=== PATIENT | male | born 1950 | race Caucasian/White ===

== ENCOUNTER 2017-09-27 12:35 | Observation (INO) ==
--- NOTE | 2017-09-27 12:58 | Emergency Department Note ---
Disposition Clinical Impression: Chest pain Qualifiers: Chest pain type: unspecified Qualified Code(s): R07.9 - Chest pain, unspecified Disposition: Admitted As Inpatient Condition: Good Referrals: Jose Antonio Velez DO [Primary Care Provider] - Forms: ED Satisfaction Letter Time of Disposition: 17:47 Chest Pain HPI - General Chief Complaint: ED Chest Pain Stated Complaint: "CP x 3 days" Time Seen by Provider: 09/27/17 12:44 Source: patient Mode of arrival: ambulatory Limitations: no limitations Vital Signs Reviewed: Yes Nursing Notes Reviewed: Yes - History of Present Illness HPI Narrative: Patient is a 66-year-old male with no past medical history. He presents today due to chest discomfort. Patient states that about 1 week ago, he had an episode of chest discomfort while sitting during a movie. He states that the pain was sudden in onset, it radiated to his right upper extremity, rated a 10 out of 10, described as dull ache, associated with nausea and sweating. He stated that it went away after 2 minutes. He did not seek medical attention at that time. He denies any previous cardiac illnesses such as DC, CAD. Denies any previous history of cardiac stents. He states that yesterday, he had onset of chest pain again while driving. He describes the pain as a squeezing sensation in the center of his chest that spreads to the entire chest. No radiation currently to arm or jaw. No dyspnea. No worsening with exertion. Rated 6/10 currently. Took baby aspirin 81mg. Severity scale (1-10): 6 - Related Data Allergies Allergy/AdvReac Type Severity Reaction Status Date / Time No Known Allergies Allergy Unverified 01/25/15 08:57 All systems ED: reviewed and negative except as stated. Constitutional: Denies: fever Cardiovascular: Reports: chest pain Respiratory: Reports: dyspnea. Denies: cough Gastrointestinal: Reports: nausea. Denies: abdominal pain, vomiting, diarrhea Genitourinary: Denies: urgency, dysuria, frequency Neurological: Denies: headache, weakness, numbness, paresthesias Chest Pain PMH - Past Medical History Medical history: Reports: no medical history Psychiatric history: Reports: no psych history - Social History Smoking Status: Never smoker Alcohol use: Reports: none Drug use: Reports: none Physical Exam - General Limitations: no limitations General appearance: alert - Head Head exam: atraumatic, normocephalic, normal inspection - Eye Eye exam: Present: normal appearance, PERRL, EOMI - ENT ENT exam: normal exam, normal oropharynx, mucous membranes moist - Neck Neck exam: Present: normal inspection, full ROM, trachea midline - Chest Chest inspection: Present: normal inspection, symmetric chest wall rise - Respiratory Respiratory exam: Present: normal lung sounds bilaterally. Absent: respiratory distress, wheezes - Cardiovascular Cardiovascular exam: Present: regular rate, normal rhythm, normal heart sounds - Abdominal Exam Abdominal exam: Present: soft, Non-Tender. Absent: tenderness, distention, guarding, rebound, rigidity - Extremities Exam Extremities exam: Present: normal inspection, full ROM. Absent: tenderness, pedal edema - Neurological Exam Neurological exam: Present: alert, oriented X3 - Psychiatric Psychiatric exam: Present: normal affect, normal mood - Skin Skin exam: Present: warm, dry, intact, normal color Course Course Narrative: Currently concern for ACS versus PE due to pleuritic type chest discomfort. D- dimer ordered. Troponin, EKG, chest x-ray ordered. Chest x-ray negative. EKG shows normal sinus rhythm with no acute ST changes. Troponin negative. Currently waiting on d-dimer. 17:42 d-dimer positive. CTA ordered. No evidence of any acute PE, pneumonia, pulmonary edema. Patient was having some mild chest discomfort. Offered admission for trending troponins and further chest pain rule out. No recent stress test or echocardiogram. Patient was accepted for admission by Dr. Salazar. Chest X-Ray 09/27/17 12:57 IMPRESSION: No acute cardiopulmonary disease. D/ / Alexa Veliz MD / Alexa Veliz MD Interpreting Provider: Alexa Veliz MD Chest CTA 09/27/17 14:59 IMPRESSION: 1. No acute pulmonary emboli. 2. Coronary and aortic atherosclerosis with no aortic dissection. 3. Mild COPD with bibasilar atelectasis. No acute pneumonia or pulmonary edema. D/ / 09/27/2017 16:27:48 Son Flores MD / tavo Interpreting Provider: Son Flores MD Chest X-Ray 09/27/17 12:57 IMPRESSION: No acute cardiopulmonary disease. D/ / Alexa Veliz MD / Alexa Veliz MD Interpreting Provider: Alexa Veliz MD Vital Signs Temperature 98.3 F 09/27/17 12:37 Pulse Rate 93 09/27/17 12:37 Respiratory Rate 16 09/27/17 12:37 Blood Pressure 195/113 09/27/17 12:37 O2 Sat by Pulse Oximetry 97 09/27/17 12:37 Temperature 98.3 F 09/27/17 12:37 Pulse Rate 85 09/27/17 16:08 Respiratory Rate 15 09/27/17 16:08 Blood Pressure 160/120 09/27/17 16:08 O2 Sat by Pulse Oximetry 95 09/27/17 16:08 Oxygen Delivery Oxygen Delivery Room Air Chest Pain - MDM Narrative Medical decision making narrative: Currently concern for ACS versus PE due to pleuritic type chest discomfort. D- dimer ordered. Troponin, EKG, chest x-ray ordered. Chest x-ray negative. EKG shows normal sinus rhythm with no acute ST changes. Troponin negative. Currently waiting on d-dimer. 17:42 d-dimer positive. CTA ordered. No evidence of any acute PE, pneumonia, pulmonary edema. Patient was having some mild chest discomfort. Offered admission for trending troponins and further chest pain rule out. No recent stress test or echocardiogram. Patient was accepted for admission by Dr. Salazar. - Medical Records Medical records reviewed: Yes I reviewed the patient's medical records. - Lab Data Lab results reviewed: Yes I reviewed the patient's lab results. Result diagrams: 09/27/17 12:56 09/27/17 12:56 Lab Results 09/27/17 09/27/17 09/27/17 Range/Units 12:56 12:56 12:56 WBC 7.6 (4.3-11.1) K/mcL RBC 6.03 H (4.19-5.50) M/mcL Hgb 17.2 H (12.9-16.9) g/dL Hct 50.2 H (37.5-50.1) % MCV 83.3 (83.0-100.0) fL MCH 28.5 (28.0-33.3) pg MCHC 34.3 (31.6-35.5) g/dL RDW 15.2 H (11.5-14.5) % Plt Count 405 H (140-400) K/mcL MPV 9.4 (9.4-12.4) fL Immature Gran % 0.4 (0-4) % Seg Neutrophils % 54.3 % Lymphocytes % 30.2 % Monocytes % 11.7 % Eosinophils % 2.5 % Basophils % 0.9 % Neutrophils # 4.1 (1.6-8.9) K/mcL Lymphocytes # 2.3 (0.6-4.6) K/mcL Monocytes # 0.9 (0.0-1.3) K/mcL Eosinophils # 0.2 (0.0-0.6) K/mcL Basophils # 0.1 (0.0-0.2) K/mcL D-Dimer 942 H (0-500) ng/mLFEU Sodium 136 (136-145) mEq/L Potassium 4.4 (3.5-5.1) mEq/L Chloride 102 (98-107) mEq/L Carbon Dioxide 25 (23-29) mEq/L BUN 19 (8-23) mg/dL Creatinine 1.32 H (0.70-1.30) mg/dL Est GFR ( Amer) > 60 (> 60) Est GFR (Non-Af Amer) 54 L (> 60) BUN/Creatinine Ratio 14 (6-26) Glucose 100 (70-105) mg/dL Calculated Osmolality 284 (280-300) Calcium 10.6 H (8.6-10.3) mg/dL Troponin I < 0.03 (< 0.04) ng/mL - Radiology Data Radiology results reviewed: Yes I reviewed the patient's radiology results. Chest X-Ray 09/27/17 12:57 IMPRESSION: No acute cardiopulmonary disease. D/ / Alexa Veliz MD / Alexa Veliz MD Interpreting Provider: Alexa Veliz MD Chest CTA 09/27/17 14:59 IMPRESSION: 1. No acute pulmonary emboli. 2. Coronary and aortic atherosclerosis with no aortic dissection. 3. Mild COPD with bibasilar atelectasis. No acute pneumonia or pulmonary edema. D/ / 09/27/2017 16:27:48 Son Flores MD / tavo Interpreting Provider: Son Flores MD - EKG Data EKG attestation: Yes I reviewed and interpreted this EKG. EKG results narrative: 09/27/2017 at 13:06. Normal sinus rhythm. Rate 85. WA 145. QRS 83. QTC 370. Normal axis. No acute ST elevation or depression. S.B.A.R. - S.B.A.R. Situation: Demographics, MOA Background: Presenting Complaint, Relevant PMH, Meds, & Allergies Assessment: Vital Signs, Course and respsone to treatment, Exam Concerns, Patient/Family Expectation, Pertinant Lab Results Recommendation: Barrier(s) to disposition, Recommendation based on pending studies, treatments, or consults S.B.A.R. Report Given to: Dr. Salazar
[2017-09-27 13:17] LABS: Basophils # 0.1 K/mcL (0.0-0.2); Basophils % 0.9 %; Eosinophils # 0.2 K/mcL (0.0-0.6); Eosinophils % 2.5 %; Hematocrit 50.2 % (37.5-50.1); Hemoglobin 17.2 g/dL (12.9-16.9); Immature Granulocytes % 0.4 % (0-4); Lymphocytes # 2.3 K/mcL (0.6-4.6); Lymphocytes % 30.2 %; Mean Corpuscular HGB Conc 34.3 g/dL (31.6-35.5); Mean Corpuscular Hemoglobin 28.5 pg (28.0-33.3); Mean Corpuscular Volume 83.3 fL (83.0-100.0); Mean Platelet Volume 9.4 fL (9.4-12.4); Monocytes # 0.9 K/mcL (0.0-1.3); Monocytes % 11.7 %; Neutrophils # 4.1 K/mcL (1.6-8.9); Platelet Count 405 K/mcL (140-400); Red Blood Count 6.03 M/mcL (4.19-5.50); Red Cell Distribution Width 15.2 % (11.5-14.5); Segmented Neutrophils % 54.3 %
[2017-09-27 13:36] LABS: Troponin I < 0.03 ng/mL (< 0.04)
[2017-09-27 13:46] LABS: BUN/Creatinine Ratio 14 (6-26); Blood Urea Nitrogen 19 mg/dL (8-23); Calcium 10.6 mg/dL (8.6-10.3); Carbon Dioxide 25 mEq/L (23-29); Chloride 102 mEq/L (98-107); Glucose 100 mg/dL (70-105); Osmolality,Calculated 284 (280-300); Potassium 4.4 mEq/L (3.5-5.1); Sodium 136 mEq/L (136-145); eGFR For Non-African Americans 54 (> 60)
[2017-09-27] MEDS ORDERED: Nitroglycerin 0.4 MG TAB.SUBL SL PRN ×2 (13:59→17:28)
--- NOTE | 2017-09-27 14:06 | Emergency Department Note ---
Disposition Clinical Impression: Chest pain Qualifiers: Chest pain type: unspecified Qualified Code(s): R07.9 - Chest pain, unspecified Disposition: Admitted As Inpatient Condition: Good General Adult HPI - General Chief complaint: ED Chest Pain Stated complaint: "CP x 3 days" Time Seen by Provider: 09/27/17 12:44 Source: patient Mode of arrival: ambulatory Limitations: no limitations - History of Present Illness Pain Scale: 6 - Related Data Home Medications Medication Instructions Recorded Confirmed No Known Home Drugs 09/27/17 09/27/17 Allergies Allergy/AdvReac Type Severity Reaction Status Date / Time No Known Allergies Allergy Verified 09/27/17 17:52 Constitutional: Denies: fever Cardiovascular: Reports: chest pain Respiratory: Reports: dyspnea. Denies: cough Gastrointestinal: Reports: nausea. Denies: abdominal pain, vomiting, diarrhea Genitourinary: Denies: urgency, dysuria, frequency Neurological: Denies: headache, weakness, numbness, paresthesias Past Medical History - Past Medical History Medical history: Reports: no medical history Psychiatric history: Reports: no psych history - Social History Smoking Status: Never smoker Alcohol use: Reports: none Drug use: Reports: none Physical Exam - General Limitations: no limitations General appearance: alert Course Vital Signs Temperature 98.3 F 09/27/17 12:37 Pulse Rate 93 09/27/17 12:37 Respiratory Rate 16 09/27/17 12:37 Blood Pressure 195/113 09/27/17 12:37 O2 Sat by Pulse Oximetry 97 09/27/17 12:37 Temperature 98.3 F 09/27/17 12:37 Pulse Rate 84 09/27/17 17:52 Respiratory Rate 15 09/27/17 17:52 Blood Pressure 188/123 09/27/17 17:52 O2 Sat by Pulse Oximetry 95 09/27/17 17:52 Oxygen Delivery Oxygen Delivery Room Air Medical Decision Making - Lab Data Result diagrams: 09/27/17 12:56 09/27/17 12:56 Lab Results 09/27/17 09/27/17 09/27/17 Range/Units 12:56 12:56 12:56 WBC 7.6 (4.3-11.1) K/mcL RBC 6.03 H (4.19-5.50) M/mcL Hgb 17.2 H (12.9-16.9) g/dL Hct 50.2 H (37.5-50.1) % MCV 83.3 (83.0-100.0) fL MCH 28.5 (28.0-33.3) pg MCHC 34.3 (31.6-35.5) g/dL RDW 15.2 H (11.5-14.5) % Plt Count 405 H (140-400) K/mcL MPV 9.4 (9.4-12.4) fL Immature Gran % 0.4 (0-4) % Seg Neutrophils % 54.3 % Lymphocytes % 30.2 % Monocytes % 11.7 % Eosinophils % 2.5 % Basophils % 0.9 % Neutrophils # 4.1 (1.6-8.9) K/mcL Lymphocytes # 2.3 (0.6-4.6) K/mcL Monocytes # 0.9 (0.0-1.3) K/mcL Eosinophils # 0.2 (0.0-0.6) K/mcL Basophils # 0.1 (0.0-0.2) K/mcL D-Dimer 942 H (0-500) ng/mLFEU Sodium 136 (136-145) mEq/L Potassium 4.4 (3.5-5.1) mEq/L Chloride 102 (98-107) mEq/L Carbon Dioxide 25 (23-29) mEq/L BUN 19 (8-23) mg/dL Creatinine 1.32 H (0.70-1.30) mg/dL Est GFR ( Amer) > 60 (> 60) Est GFR (Non-Af Amer) 54 L (> 60) BUN/Creatinine Ratio 14 (6-26) Glucose 100 (70-105) mg/dL Calculated Osmolality 284 (280-300) Calcium 10.6 H (8.6-10.3) mg/dL Troponin I < 0.03 (< 0.04) ng/mL Attestation Statement - Attestation Attestation: I examined this patient and my medical decision-making was reviewed with the STENO TYPIST/PA/Advanced Practice Nurse/Resident Physician. I agree with the documented findings, disposition and treatment plan as described except to the extent set forth below. I did see the patient is spoke with him and examined him he does have chest pain for the last 24 hours which is constant and improved but it is never gone away completely during this time. No exertional component. Was clammy earlier. Does have intermittent dyspnea and some pain with deep inspiration. Examination the chest does not reveal any rash or any reproducible chest wall pain with palpation. I did review his EKG which shows normal sinus rhythm with a rate of 85 and without acute ischemic change. Initial troponin is negative. 2375
[2017-09-27] MEDS ORDERED: Isovue-370 500 ML INFUS..BTL IV ONE (14:59)
[2017-09-27] MEDS ORDERED: Naloxone 0.4 MG/ML INJ IVP PRN (17:25)
--- NOTE | 2017-09-27 18:57 | Electrocardiograph Report ---
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
--- NOTE | 2017-09-27 21:18 | Internal Med History&Physical ---
Date of Encounter: 09/27/17 Time of Encounter: 18:15 Internal Medicine - H&P: HPI Chief complaint: chest discomfort History of present illness: Mr. Fish is a 66 year old male with no known past medical history presented with chest pain since yesterday. He had 1 episode of chest discomfort 2 weeks ago, which resolved spontaneously in 1 min hence did not seek for any medical advice. Yesterday, it recurred and this time it did not completely resolve but remained intermittently. Substernal, described as "tightness", radiates to jaw, no aggravating/relieving factors. Not associated with N/V, diaphoresis, SOB, orthopnea, PND, LE swelling. No fever/chills or GI/ symptoms. No joint pain, rash. In the ED, he was hypertensive but otherwise stable. LAbs unremarkable except elevated D-dimer. CT angio was subsequently done which did not show PE but did show coronary/aortic atherosclerosis and mild COPD. He was given tylenol , 1 dose of nitro, and admitted for further management. Past Med Surg Social Fam HX - Past Medical History Medical history: no medical history Psychiatric history: no psych history - Past Surgical History Additional surgical history: b/l shoulder scope. left tricep insertion w/elbow ORIF. tonsillectomy. wrist surgery- - Social History Smoking Status: Never smoker Alcohol use: none Drug use: none Internal Medicine - H&P: Meds No Known Home Drugs 09/27/17 [History] 3 Allergy/AdvReac Type Severity Reaction Status Date / Time No Known Allergies Allergy Verified 09/27/17 17:52 All Systems PM: A 10-system review of systems was performed and is negative for pertinent findings except as documented above in the HPI. - Constitutional Vitals: Temp Pulse Resp BP Pulse Ox 98.4 F 84 16 155/97 96 09/27/17 20:22 09/27/17 20:22 09/27/17 20:22 09/27/17 20:22 09/27/17 20:22 - Head Head exam: Present: atraumatic, normal inspection - Eye Eye exam: Present: sclera anicteric Pupils: Present: PERRL - Neck Neck exam general surgery: Present: supple. Absent: lymphadenopathy - Respiratory Respiratory exam: Present: CTAB. Absent: rales, wheezes - Cardiovascular Cardiovascular exam: Present: RRR, +S1, +S2 - GI/Abdominal GI/Abdominal exam: Present: soft. Absent: tenderness - Extremities Exam Extremities exam: Absent: calf tenderness, joint swelling - Neurological Exam Neurological exam: Present: alert, CN II-XII intact, no focal deficits - Skin Skin exam: Present: normal color. Absent: rash Internal Med - H&P Results - Labs CBC & Chem 7: 09/27/17 12:56 09/27/17 12:56 - Assessment and plan (1) Chest pain Current Visit: Yes Status: Acute Assessment and plan: intermittent atypical chest pain that gradually worsen throughout yesterday Claims that he has no medical history but his BP is elevated and Cr mildly impaired -> suspect undiagnosed HTN and CKD also has coronary and aortic atherosclerosis on CT took ASA at home would benefit from stress test, he is unable to run due to severe L hip OA pharmacological stress test ordered serial troponin tonight check A1c and lipids in AM Qualifiers: Chest pain type: unspecified Qualified Code(s): R07.9 - Chest pain, unspecified (2) Hypertension Current Visit: Yes Status: Acute Assessment and plan: new diagnosis, would try to avoid bb for stress test tomorrow hydralazine PRN Qualifiers: Hypertension type: unspecified Qualified Code(s): I10 - Essential (primary ) hypertension (3) CKD (chronic kidney disease) Current Visit: Yes Status: Suspected Assessment and plan: Cr 1.32 with eGFR of 54, previously was in the upper normal range too suspect CKD 2/2 uncontrolled HTN monitor and outpatient work-up Qualifiers: Chronic kidney disease stage: stage 3 (moderate) Qualified Code(s): N18.3 - Chronic kidney disease, stage 3 (moderate) (4) COPD (chronic obstructive pulmonary disease) Current Visit: Yes Status: Suspected Assessment and plan: suspected based on CT chest finding but pt has no smoking history outpatient PFT for confirmation Qualifiers: COPD type: unspecified COPD Qualified Code(s): J44.9 - Chronic obstructive pulmonary disease, unspecified (5) DVT prophylaxis Current Visit: Yes Status: Acute Assessment and plan: SQ heparin - Time Spent With Patient Total time spent is greater than 50% in coordination of care (as documented) at patient's floor/unit and/or counseling patient:
[2017-09-27] MEDS ORDERED: Aspirin 81 MG TAB.CHEW PO ONE (21:34)
[2017-09-28] MEDS ORDERED: Ondansetron 4 MG/2 ML VIAL IVP PRN (01:01)
[2017-09-28] MEDS ORDERED: *HR* Heparin 5,000 UNIT/ML VIAL SQ SCH (06:00)
[2017-09-28] MEDS ORDERED: Regadenoson 0.4 MG/5 ML SYRINGE IVP ONE (06:25)
[2017-09-28 06:30] LABS: Basophils % 0.4 %; Eosinophils % 0.4 %; Hematocrit 51.4 % (37.5-50.1); Hemoglobin 17.1 g/dL (12.9-16.9); Immature Granulocytes % 0.4 % (0-4); Lymphocytes # 1.7 K/mcL (0.6-4.6); Lymphocytes % 18.6 %; Mean Corpuscular HGB Conc 33.3 g/dL (31.6-35.5); Mean Corpuscular Volume 84.1 fL (83.0-100.0); Mean Platelet Volume 9.7 fL (9.4-12.4); Monocytes # 0.6 K/mcL (0.0-1.3); Monocytes % 6.5 %; Neutrophils # 6.5 K/mcL (1.6-8.9); Platelet Count 394 K/mcL (140-400); Red Blood Count 6.11 M/mcL (4.19-5.50); Red Cell Distribution Width 15.2 % (11.5-14.5); Segmented Neutrophils % 73.7 %
[2017-09-28 06:44] LABS: Chol/HDL Ratio 9.5 (0-4.9); Estimated Average Glucose 114 mg/dl; Hemoglobin A1C 5.6 %
[2017-09-28 06:45] LABS: Calcium 10.5 mg/dL (8.6-10.3)
[2017-09-28 10:48] VITALS: BP 134/76
--- NOTE | 2017-09-28 13:55 | Discharge Summary ---
Orders not resulted at time of discharge: Pending orders 09/27/17 18:03 NM giacomo perf SPECT multi [NM] Routine Date of Encounter: 09/28/17 Time of Encounter: 13:51 - Discharge Diagnosis (1) Chest pain Priority: Primary Status: Acute Qualifiers: Chest pain type: unspecified Qualified Code(s): R07.9 - Chest pain, unspecified (2) HLD (hyperlipidemia) Priority: Secondary Status: Chronic Qualifiers: Hyperlipidemia type: unspecified Qualified Code(s): E78.5 - Hyperlipidemia , unspecified (3) Hypertensive renal disease with renal failure Priority: Secondary Status: Chronic Hospital course: Mr. Fish is a 66 year old male. The patient was admitted after having an episode of chest pain. He started on the day preceding the admissionwhen he was driving his car. After about 2 minutes nearly subsided. Then, it was waxing and waning discomfort; disappeared after the admission. He had one more episode of chest pain 2 weeks before. It lasted for a few minutes; not triggered by any particular factors. EKG and cardiac enzymes were normal. The patient had Cardiolite stress test. Pharmacologic stress EKG was negative for ischemia at level of heart rate achieved. Gated ejection fraction was 68%. Perfusion imaging was negative for ischemia or infarct. Condition at discharge: He feels good. Denies chest pain. Denies difficulty breathing. He ambulates on his own without difficulties. Discharged home. See discharge orders/discharge medications. Discharge discussed with: patient, family - Time Spent with Patient Total time spent providing and/or coordinating discharge services: Less than 30 minutes (25 minutes) - Discharge Medications Home Medications: No Known Home Drugs 09/27/17 [History] Allergies/Adverse Reactions: 3 Allergy/AdvReac Type Severity Reaction Status Date / Time No Known Allergies Allergy Verified 09/27/17 17:52 Date of admission: 09/27/17 18:00 Primary care physician: Kilo Velez DO Discharging clinician: Toy Mayer Anticipated date of discharge: 09/28/17 - Constitutional Vitals: Temp Pulse Resp BP Pulse Ox 97.9 F 74 15 134/76 95 09/28/17 10:47 09/28/17 10:47 09/28/17 10:47 09/28/17 10:47 09/28/17 10:47 General appearance: Present: A&O X 3, no acute distress, answers questions appropriately - Respiratory Respiratory exam: Present: CTAB. Absent: accessory muscle use, rales, rhonchi, wheezes - Cardiovascular Cardiovascular exam: Present: RRR, +S1, +S2. Absent: diastolic murmur, gallop, rubs, systolic murmur - GI/Abdominal GI/Abdominal exam: Present: normal bowel sounds, soft, no peritoneal signs. Absent: distended, tenderness - Patient Status Disposition: Home, Self-Care Condition: Good Functional capacity at discharge: independent ambulation Overall status at discharge: patient is back to baseline - Discharge Instructions Instructions: Chest Pain (DC), Hypertension (DC) Follow Up With: Jose Antonio Velez DO [Primary Care Provider] - 10/04/17 9:30 am Additional Instructions: Follow-up appointments: If there is not an appointment listed below, please call your physician and schedule a follow-up appointment. If you have congestive heart failure and your symptoms return, make an appointment with your physician. Medication List: Carry an up to date list of medications you are taking at all time. We have given you an updated medication list including any new medications that you have been prescribed. Please provide that list to your primary provider Symptoms: If your condition changes or you experience any of the following symptoms, notify your physician immediately: Unusual or worsening pain, fever, persistent nausea and vomiting, bleeding, increase in swelling (especially in your legs), sudden weight gain, extreme dizziness, chest pain, increased drainage or redness from a wound or incision. Go to the emergency department if you experience a problem with breathing. Weights: If you have a history of swelling or shortness of breath, weigh yourself daily and notify your physician if you have a weight gain of two or more pounds in one day or 5 or more pounds in a week. If you experience any of the warning signs for stroke: Sudden numbness or weakness of the face, arm or leg; especially on one side of the body, sudden confusion, trouble speaking or understanding, sudden trouble seeing in one or both eyes, sudden trouble walking, dizziness, loss of balance or coordination, sudden sever headache with no cause; Call 911 or go to the emergency room. Stroke is a medical emergency. Some risk factors for stroke: Age, cigarette smoking, diabetes, excessive alcohol consumption, family history , high blood pressure, overweight, physical inactivity, prior stroke, heart attack, diagnosis of carotid artery stenosis or other artery disease. If you smoke, STOP: Smoking or tobacco use significantly increases your risk of heart and lung disease. Your chance of disease greatly increases if you continue to smoke. For more information, call the [place] tobacco quit line for smoking cessation - QUIT-NOW ( ) - Diet and Activity Activity: resume usual activities as tolerated Diet: low fat, low cholesterol - VTE Deep Vein Thrombosis/Pulmonary Embolism Present on Admission: No
--- NOTE | 2017-09-28 16:43 | Electrocardiograph Report ---
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
== END 2017-09-28 14:40 | disposition home or self-care (01) ==
LOC: 3BNU 12:35 → EMEROO 12:35 → SUATTDRO 18:00 → 3BNU 18:38
PROVIDERS: ADMIT Internal Medicine; ATTEND Internal Medicine

== ENCOUNTER 2019-01-13 06:14 | Inpatient (IN) ==
[2019-01-13] MEDS ORDERED: Albuterol 2.5 MG/3 ML NEBULIZER IH PRN (06:29)
[2019-01-13] MEDS ORDERED: CeFAZolin Syr 2,000MG/20 ML 2,000 MG/20 ML SYRINGE IVPB ONE (06:29)
[2019-01-13] MEDS ORDERED: Ringers Solution, Lactated 1,000 ML IVC SCH ×2 (06:30→10:01)
[2019-01-13] MEDS ORDERED: Celecoxib 200 MG CAPSULE PO ONE (06:58)
[2019-01-13] MEDS ORDERED: Acetaminophen IV 1,000 MG/100 ML INFUS..BTL IVPB ONE (06:58)
[2019-01-13] MEDS ORDERED: Pregabalin 75 MG CAPSULE PO ONE (06:59)
[2019-01-13] MEDS ORDERED: *HR* Midazolam HCl 2 MG/2 ML VIAL ONE (07:10)
[2019-01-13] MEDS ORDERED: Lidocaine -MPF 2% 2 ML VIAL ONE (07:10)
[2019-01-13] MEDS ORDERED: Propofol 500 MG/50 ML INFUS..BTL ONE (07:10)
[2019-01-13] MEDS ORDERED: *HR* FentaNYL (PF) 100 MCG/2 ML VIAL ONE (07:10)
[2019-01-13] MEDS ORDERED: Ethanol\\Acetic Acid\\Na Ace\\Ben 1,000 ML IRRIG.SOLN IR ONE (07:15)
[2019-01-13] MEDS ORDERED: ROPIVACAINE/PF/NS 0.25% 1 EACH SYRINGE INTRAART ONE (07:17)
[2019-01-13] MEDS ORDERED: Lidocaine -MPF 1% 5 ML AMPUL ONE (07:18)
[2019-01-13] MEDS ORDERED: Ropivacaine/PF 0.5% 30 ML VIAL ONE (07:20)
[2019-01-13] MEDS ORDERED: Ondansetron 4 MG/2 ML VIAL ONE (07:51)
[2019-01-13] MEDS ORDERED: Dexamethasone 4 MG/ML VIAL ONE (07:51)
[2019-01-13] MEDS ORDERED: Tranexamic Acid 1,000 MG/10 ML VIAL ONE (07:51)
[2019-01-13] MEDS ORDERED: *HR* PHENYLEPHRINE 1,000 MCG/10 ML SYRINGE IVP ONE (08:07)
[2019-01-13] MEDS ORDERED: *HR* Promethazine 25 MG/ML VIAL IVP PRN (10:01)
[2019-01-13] MEDS ORDERED: Temazepam 15 MG CAPSULE PO PRN (10:01)
[2019-01-13] MEDS ORDERED: Ondansetron 4 MG/2 ML VIAL IVP PRN (10:01)
[2019-01-13] MEDS ORDERED: Naloxone 0.4 MG/ML INJ IVP PRN (10:01)
[2019-01-13] MEDS ORDERED: HYDROcodone BIT/Homatropine 5 MG TABLET PO PRN (10:01)
[2019-01-13] MEDS ORDERED: MOM Conc 10 ML UD.LIQ PO PRN (10:01)
[2019-01-13] MEDS ORDERED: *HR* OxyCODONE Immed Rel 5 MG TABLET PO PRN (10:01)
[2019-01-13] MEDS ORDERED: traMADol 50 MG TABLET PO PRN (10:01)
[2019-01-13] MEDS ORDERED: Sennosides 8.6 MG TABLET PO PRN (10:01)
[2019-01-13 10:04] LABS: Hemoglobin 13.3 g/dL (12.9-16.9)
[2019-01-13] MEDS: Ascorbic Acid 500 MG TABLET PO SCH ×2 (12:19→16:22)
[2019-01-13] MEDS: Multivit/Ca/Min/Fe/FA 1 TAB TABLET PO SCH (12:19)
[2019-01-14 02:03] LABS: Basophils % 0.1 %; Hematocrit 40.8 % (37.5-50.1); Immature Granulocytes % 0.4 % (0-4); Lymphocytes # 1.1 K/mcL (0.6-4.6); Lymphocytes % 7.3 %; Mean Corpuscular HGB Conc 34.3 g/dL (31.6-35.5); Mean Corpuscular Hemoglobin 29.3 pg (28.0-33.3); Mean Corpuscular Volume 85.4 fL (83.0-100.0); Mean Platelet Volume 9.5 fL (9.4-12.4); Monocytes # 0.8 K/mcL (0.0-1.3); Monocytes % 5.2 %; Neutrophils # 12.5 K/mcL (1.6-8.9); Platelet Count 253 K/mcL (140-400); Red Blood Count 4.78 M/mcL (4.19-5.50); Red Cell Distribution Width 12.2 % (11.5-14.5); White Blood Count 14.3 K/mcL (4.3-11.1)
[2019-01-14 02:21] LABS: BUN/Creatinine Ratio 25 (6-26); Blood Urea Nitrogen 21 mg/dL (8-23); Calcium 8.9 mg/dL (8.6-10.3); Carbon Dioxide 21 mEq/L (23-29); Chloride 107 mEq/L (98-107); Glucose 163 mg/dL (70-105); Osmolality,Calculated 299 (280-300); Potassium 3.8 mEq/L (3.5-5.1); Sodium 141 mEq/L (136-145); eGFR For African Americans > 60 (> 60); eGFR For Non-African Americans > 60 (> 60)
[2019-01-14] MEDS ORDERED: *HR* Enoxaparin 30 MG/0.3 ML SYRINGE SQ SCH ×2 (06:30)
[2019-01-14] MEDS: Multivit/Ca/Min/Fe/FA 1 TAB TABLET PO SCH (08:17)
[2019-01-14] MEDS: Ascorbic Acid 500 MG TABLET PO SCH (08:17)
[2019-01-14 11:27] VITALS: BP 151/91
== END 2019-01-14 11:55 | disposition home or self-care (01) | DRG 470 ==
LOC: SAMDAY 06:14 → 3NENU 10:03
PROVIDERS: ADMIT Orthopaedic Surgery; ATTEND Orthopaedic Surgery